=== PATIENT | male | born 1950 | race Caucasian/White ===

== ENCOUNTER 2023-08-02 09:45 | Emergency (ER) | payer OTHER ==
[~2023-08-02] VITALS: Ht 165.1 cm; Wt 64.0 kg
[2023-08-02 09:51] VITALS: O2SAT 100
[2023-08-02 10:50] LABS: HEMATOCRIT 43.6 % (42.0-52.0); HEMOGLOBIN 14.7 g/dL (14.0-18.0); MEAN CORPUSCULAR HEMOGLOBIN 31.2 pg (28.0-32.0); MEAN CORPUSCULAR HGB CONC 33.7 g/dL (31.0-37.0); MEAN CORPUSCULAR VOLUME 92.5 fL (80.0-94.0); PLATELET 238 x1000/uL (130-400); RED BLOOD CELL COUNT 4.72 mill/uL (4.7-6.1); RED CELL DISTRIBUTION WIDTH 13.8 % (11.6-14.6)
[2023-08-02 11:07] LABS: ALANINE AMINOTRANSFERASE 22 IU/L (10-49); ALBUMIN 4.1 g/dL (3.2-4.8); ASPARTATE AMINOTRANSFERASE 32 IU/L (<34); BETA HYDROXYBUTYRATE 0.2 mMol/L (0.0-0.3); BILIRUBIN TOTAL 0.4 mg/dL (0.1-1.0); CARBON DIOXIDE 26 mEq/L (21-32); CHLORIDE 105 mEq/L (98-107); CREATININE 1.4 mg/dL (0.6-1.3); GLUCOSE 261 mg/dL (70-105); POTASSIUM 5.1 mEq/L (3.5-5.1); PROTEIN TOTAL 6.6 g/dL (6.0-8.3); SODIUM 138 mEq/L (136-145); UREA NITROGEN BLOOD 11 mg/dL (9-23)
[2023-08-02 11:38] VITALS: BP 128/54; PULSE 76; RESP 16; TEMP 98.7
[2023-08-02] MEDS ORDERED: INSULIN LISPRO 100 UNITS/ML SUBCUT NR (11:45)
== END 2023-08-02 11:39 ==
LOC: ER 09:45
DX: E11.65 Type 2 diabetes mellitus with hyperglycemia (principal)
CPT/HCPCS: 36415; 80053; 82010; 82803; 82962; 85027; 99283